=== PATIENT | male | born 1965 | race Caucasian/White ===

== ENCOUNTER 2016-11-18 08:16 | Inpatient (IN) | payer OTHER ==
[2016-11-04 10:11] VITALS: BMI 38.0
--- NOTE | 2016-11-04 10:53 | PAT Medication Instructions ---
Service Date Nov 04, 2016. Current Home Medication List Acetaminophen (Tylenol), 1,500 MG PO BID PRN Ibuprofen (Advil), 200-600 MG PO Q4H PRN for Pain Morphine Sulfate Ir (Morphine Sulfate Ir), 15 MG PO BID PRN for Pain Omeprazole (Prilosec), 1 CAP PO QAM Oxycodone Hcl (Oxycodone Hcl), 1 TAB PO QID PRN for Pain Medication Instructions For Your Scheduled Surgery - Check with surgeon for instructions: Ibuprofen (Advil), 200-600 MG PO Q4H PRN for Pain - Take the following medications the morning of surgery with a sip of water: Acetaminophen (Tylenol), 1,500 MG PO BID PRN (if needed) Morphine Sulfate Ir (Morphine Sulfate Ir), 15 MG PO BID PRN for Pain (okay to take up to 4 hours prior to surgery if needed) Omeprazole (Prilosec), 1 CAP PO QAM Oxycodone Hcl (Oxycodone Hcl), 1 TAB PO QID PRN for Pain (okay to take up to 4 hours prior to surgery if needed) - Take the following medications as scheduled the night before surgery: Acetaminophen (Tylenol), 1,500 MG PO BID PRN (if needed) Morphine Sulfate Ir (Morphine Sulfate Ir), 15 MG PO BID PRN for Pain (if needed) Omeprazole (Prilosec), 1 CAP PO QAM Oxycodone Hcl (Oxycodone Hcl), 1 TAB PO QID PRN for Pain (if needed) If you have any questions please call us at [phone] or [phone] or [phone]
--- NOTE | 2016-11-04 11:30 | DIAGNOSTIC IMAGING REPORT ---
CHEST PREADMISSION(PA/LAT) CLINICAL HISTORY: Preoperative evaluation. COMPARISON STUDY: Chest radiograph November 05, 2007. FINDINGS: Lung volumes are normal. Lungs are clear. No pneumothorax or pleural effusion is present. Pulmonary vascularity is normal. Cardiomediastinal silhouette is normal. IMPRESSION: No acute cardiopulmonary findings. Electronically signed by: Pedro Terrell M.D. 11/04/2016 11:29 AM Dictated Date/Time: 11/04/2016 11:29 AM
[2016-11-04 11:33] LABS: BASO % 0.3 %; BASO ABS # 0.04 K/uL (0-0.2); COMPLETE YES; HEMATOCRIT 39.1 % (42-52); IG% 0.6 %; LYMPH % 23.8 %; MEAN CELL VOLUME 88.3 fL (80-100); MEAN CORPUSCULAR HEMOGLOBIN 30.9 pg (25-34); MONO % 6.3 %; PLATELET COUNT 297 K/uL (130-400); RED BLOOD COUNT 4.43 M/uL (4.7-6.1); URINE APPEARANCE CLEAR (CLEAR); URINE BILIRUBIN NEG (NEG); URINE COLOR YELLOW; URINE NITRITE NEG (NEG); URINE SPECIFIC GRAVITY 1.014 (1.000-1.030); UROBILINOGEN NEG (NEG); ZZUR CULT IF INDIC CLEAN CATCH NO
[2016-11-04 11:39] LABS: MANUAL MICROSCOPIC REQUIRED? NO; REVIEW REQ? NO
[~2016-11-18] VITALS: Ht 167.6 cm; Wt 107.5 kg
[2016-11-18] VITALS (8 sets, daily range): BP systolic 104–146; BP diastolic 55–94; PULSE 75–88; TEMP 36.2–36.6; O2SAT 95–100; Ht 167.6 cm; Wt 107.5 kg
[~2016-11-18 08:16] MED LIST: ACET-1256 PO; CEFAZOLIN 2000 MG/60 ML D5W IV SCH; IBUP-1050 PO; MORP15TA PO; OMEP40CA41 PO; OXYC-164 PO
[2016-11-18] MEDS ORDERED: MIDAZOLAM HCL 1 MG/ML 2ML VIAL ONE (09:34)
[2016-11-18] MEDS ORDERED: FENTANYL CITRATE INJ 50 MCG/1 ML 2 ML VIAL ONE ×6 (09:35→12:43)
--- NOTE | 2016-11-18 09:43 | History & Physical Bridge Note ---
H&P Re-Evaluation Bridge Note: I have examined the patient, reviewed the History & Physical and in the interval since the performance of the History & Physical I have noted the following changes of clinical significance: No changes noted
--- NOTE | 2016-11-18 09:44 | History and Physical ---
History & Physical Date Nov 18, 2016. Chief Complaint Back and leg pain History of Present Illness The patient is a 51 year old male with complaints of back and leg pain Additional History Hepatic Disease: No Endocrine Disorder: No Kidney Disease: No Hypertension: No Heart Disease: No Bleeding Tendencies: No Infectious Diseases: No Allergies Coded Allergies: No Known Allergies (Verified , 11/18/16) Home Medications Scheduled Acetaminophen (Tylenol), 1,500 MG PO BID PRN Omeprazole (Prilosec), 1 CAP PO QAM Scheduled PRN Ibuprofen (Advil), 200-600 MG PO Q4H PRN for Pain Morphine Sulfate Ir (Morphine Sulfate Ir), 15 MG PO BID PRN for Pain Oxycodone Hcl (Oxycodone Hcl), 1 TAB PO QID PRN for Pain Physical Examination Skin: warm/dry, no rash Eyes: normal inspection, EOMI, sclerae normal ENT: normal ENT inspection, pharynx normal Head: normocephalic, atraumatic Neck: supple, no adenopathy, trachea midline Respiratory/Chest: lungs clear, normal breath sounds, no respiratory distress Cardiovascular: regular rate, rhythm, no edema, no murmur Abdomen / GI: normal bowel sounds, non tender Back: normal inspection Extremities: normal inspection, normal range of motion Neurologic/Psych: no motor/sensory deficits, alert, normal reflexes, oriented x 3 Diagnosis Lumbar spinal stenosis Plan of Treatment Lumbar decompression fusion L4 5 with removal of instrumentation L5-S1
[2016-11-18] MEDS ORDERED: CEFAZOLIN IV 2,000 MG/60 ML D5W IV ONE (10:02)
[2016-11-18] MEDS ORDERED: BACITRACIN 50000 UNIT VIAL ONE (10:15)
[2016-11-18] MEDS ORDERED: BUPIVACAINE/EPINEPHRINE 0.5% MPF 1:200,000 30 ML VIAL ONE (10:15)
[2016-11-18] MEDS ORDERED: HYDROmorphone INJ 2 MG/ML SYR/VIAL ONE ×2 (10:51→12:53)
[2016-11-18] MEDS ORDERED: KETAMINE HCL INJ 50 MG/ML 10 ML VIAL ONE (10:51)
[2016-11-18] MEDS ORDERED: LIDOCAINE HCL 2% 2 ML VIAL (20MG/ML) ONE (12:32)
[2016-11-18] MEDS ORDERED: LABETALOL HCL IV 5 MG/ML 20ML IV ONE (12:32)
[2016-11-18] MEDS ORDERED: DEXAMETHASONE SOD INJ 4 MG/ML VIAL ONE (12:32)
[2016-11-18] MEDS ORDERED: ONDANSETRON INJ 2 MG/ML 2 ML VIAL ONE ×2 (12:32→12:53)
[2016-11-18] MEDS ORDERED: ESMOLOL HCL 10 MG/ML 10 ML VIAL ONE (12:32)
[2016-11-18] MEDS ORDERED: PROPOFOL IV EMULSION 10 MG/ML 20 ML VIAL IV ONE (12:32)
[2016-11-18] MEDS ORDERED: FAMOTIDINE 20 MG TAB PO PRN (12:45)
[2016-11-18] MEDS ORDERED: METOCLOPRAMIDE HCL INJ 5 MG/ML 2 ML VIAL IV PRN (12:45)
[2016-11-18] MEDS ORDERED: ACETAMINOPHEN 500 MG TAB PO PRN (12:45)
[2016-11-18] MEDS ORDERED: DO NOT ADMINISTER FLU VACCINE PRN ×3 (12:45)
[2016-11-18] MEDS ORDERED: SODIUM CHLORIDE 0.9% 1000ML 1,000 ML IV SCH (12:45)
[2016-11-18] MEDS ORDERED: hydrOXYzine HCL 25 MG TAB PO PRN (12:45)
[2016-11-18] MEDS ORDERED: PROMETHAZINE HCL INJ 12.5 MG in SODIUM CHLORIDE 0.9% 50ML 50 ML IV PRN (12:45)
[2016-11-18] MEDS ORDERED: LORAZEPAM INJ 0.5 MG in SYRINGE 0.75 ML IV PRN (12:45)
[2016-11-18] MEDS ORDERED: DO NOT ADMINISTER PNEUMOCOCCAL VACCINE PRN ×2 (12:45)
[2016-11-18] MEDS ORDERED: LORAZEPAM 0.5 MG TAB PO PRN (12:45)
[2016-11-18] MEDS ORDERED: MAGNESIUM HYDROXIDE SUSP 30 ML UDC PO PRN (12:45)
[2016-11-18] MEDS ORDERED: NALOXONE HCL 0.4 MG/1 ML VIAL/CARP IV PRN ×2 (12:45)
[2016-11-18] MEDS ORDERED: BISACODYL 10 MG SUPP PR PRN (12:45)
[2016-11-18] MEDS ORDERED: SOD PHOSPHATE/SOD BIPHOSPHATE ENEMA 132 ML BTL PR PRN (12:45)
[2016-11-18] MEDS ORDERED: ONDANSETRON INJ 2 MG/ML 2 ML VIAL IV PRN ×2 (12:45→13:30)
[2016-11-18] MEDS ORDERED: FLOSEAL HEMOSTATIC MATRIX 10ML TOP ONE (12:46)
[2016-11-18] MEDS ORDERED: GLYCOPYRROLATE INJ 0.2 MG/ML VIAL ONE (12:53)
[2016-11-18] MEDS ORDERED: NEOSTIGMINE METHYLSULFATE 1 MG/ML 10ML VIAL ONE (12:53)
[2016-11-18] MEDS ORDERED: KETOROLAC TROMETHAMINE 30 MG/ML VIAL ONE (12:53)
--- NOTE | 2016-11-18 12:55 | [facility] Operative Report ---
Operative Report Operative Date Nov 18, 2016. Pre-Operative Diagnosis Lumbar Spinal Stenosis Post-Operative Diagnosis Lumbar Spinal Stenosis Procedure(s) Performed #1 removal of posterior instrumentation L5-S1. #2 expiration of fusion L5-S1. #3 lumbar decompression medial facetectomies foraminotomies L3 4 L4 5. #4 posterior spinal fusion L4 5. #5 placement posterior inch rotation L4 5. #6 interbody fusion L4 5. #7 placement peek cage 15 x 26 mm at L4 5. #8 placement of local autograft and posterior gutters. #9 placement of ostial amp in the interbody space and posterior lateral gutters. Surgeon Dr. Killian Armorer Technician Surgeon(s) Magda Montesinos PA-C Estimated Blood Loss 450 cc Findings Severe spinal stenosis Specimens A: explanted hardware Description of Procedure Patient was met with preoperatively case discussed all questions are dressed. After informed consent obtained patient was taken to the operative suite underwent intubation and placed in prone position Mo table on top of the Adan frame. All bony prominences were well-padded and the eyes inspected to ensure no external pressure placed upon them. This point lumbar spines prepped and draped in normal sterile fashion. Sharp dissection with the assistance of Bovie cautery was performed onto an exposing the lamina and transverse processes of L4 and instrumentation at the 5 S1 levels bilaterally. Proceeded remove the hardware L5-S1 bilaterally explored the fusion mass noted to be intact. Then performed a complete laminectomy of L4 partial laminectomy of L3 addressing severe lateral recess and foraminal stenosis. Pedicle screws then placed in L4 and 5 bilaterally with assistance of fluoroscopy in the purposes juan diego placed. Through a transverse foraminal approach a left complete discectomy was performed and plate created to subcortical bleeding bone and a 15 x 26 mm cage filled with ostial amp tapped into position. The rods were then compressed locked and final position bilaterally transverse processes of L4 and L5 burred to subcortical bleeding bone. Remaining ostial amp local autograft was placed and posterior gutters. 15 round NYLA drain inserted. Incision was closed with 1 Vicryl fascia 2-0 Vicryl subcutaneous C 4 Monocryl for final skin closure Steri-Strip sterile dressing placed patient we can take PACU stable condition. Please note Magda Machuca was present at the entire procedure involved in patient positioning complex portions of the surgery and final skin closure. I attest to the content of the Intraoperative Record and any orders documented therein. Any exceptions are noted below.
--- NOTE | 2016-11-18 12:56 | DIAGNOSTIC IMAGING REPORT ---
LUMBAR SPINE, INTRAOPERATIVE FLUOROSCOPY HISTORY: L4-5 decompression and fusion. FLUOROSCOPY TIME: 9 seconds. FINDINGS: Intraoperative fluoroscopy was provided for the lumbar spine. 2 fluoroscopic spot images were obtained. Posterior decompression fusion at L4-5 with pedicle screws and rods. The hardware appears intact. Evidence for prior hardware removal at L5-S1. IMPRESSION: Fluoroscopy provided for a L4-5 posterior decompression and fusion. Electronically signed by: Jeovanny Juarez M.D. 11/18/2016 12:55 PM Dictated Date/Time: 11/18/2016 12:54 PM
[2016-11-18] MEDS ORDERED: HYDROmorphone INJ 1 MG/ML SYR ONE (13:17)
[2016-11-18] MEDS: HYDROmorphone HCL 0.5MG/ML 50 ML CASSETTE IV PRN ×4 (13:19→23:03)
[2016-11-18] MEDS ORDERED: EpHEDrine SULFATE INJ 50 MG/ML AMP IV PRN (13:30)
[2016-11-18] MEDS ORDERED: PHENYLEPHRINE 100MCG/ML 5ML SYR IV PRN (13:30)
[2016-11-18] MEDS ORDERED: HYDROmorphone INJ 2 MG/ML SYR/VIAL IV PRN (13:30)
[2016-11-18] MEDS ORDERED: ATROPINE SULFATE 0.1 MG/ML 5ML SYR IV PRN (13:30)
--- NOTE | 2016-11-18 14:04 | Anesthesiology Progress Note ---
Anesthesia Post Op Note Date & Time Nov 18, 2016 at 14:03 Vital Signs Pain Intensity: 0 Vital Signs Past 12 Hours Date Time Temp Pulse Resp B/P (MAP) Pulse Ox O2 Delivery O2 Flow Rate FiO2 11/18/16 13:55 71 16 136/85 99 Nasal Cannula 4 11/18/16 13:45 70 14 148/81 97 Nasal Cannula 4 11/18/16 13:35 74 14 168/96 100 Oxymask 10 11/18/16 13:25 68 12 173/101 100 Oxymask 10 11/18/16 13:15 78 12 172/104 100 Oxymask 10 11/18/16 13:07 36.5 74 14 158/70 100 Oxymask 10 11/18/16 08:42 36.4 76 18 143/94 97 Room Air Notes Mental Status: alert / awake / arousable, participated in evaluation Pt Amnestic to Procedure: Yes Nausea / Vomiting: adequately controlled Pain: adequately controlled Airway Patency, RR, SpO2: stable & adequate BP & HR: stable & adequate Hydration State: stable & adequate Anesthetic Complications: no major complications apparent
[2016-11-18] MEDS: LACTATED RINGER'S 1000ML 1,000 ML IV SCH ×2 (14:34→19:34)
[2016-11-18] MEDS: CEFAZOLIN IV 2,000 MG in DEXTROSE 5% 50ML 50 ML IV SCH (18:15)
[2016-11-18] MEDS: NICOTINE 21 MG/24 HR TDSY EXT SCH (19:02)
[2016-11-18] MEDS: DEXAMETHASONE INJ 6 MG in SYRINGE 0 ML IV SCH (20:12)
[2016-11-18] MEDS: DOCUSATE SODIUM/SENNA 50/8.6MG TAB PO SCH (21:04)
[2016-11-19] MEDS: LACTATED RINGER'S 1000ML 1,000 ML IV SCH (02:06)
[2016-11-19] MEDS: CEFAZOLIN IV 2,000 MG in DEXTROSE 5% 50ML 50 ML IV SCH (02:06)
[2016-11-19] MEDS: ALUMINUM/MAGNESIUM SUSP 30 ML UDC PO PRN ×2 (03:39→11:38)
[2016-11-19] MEDS: DEXAMETHASONE INJ 6 MG in SYRINGE 0 ML IV SCH ×2 (03:42→11:30)
[2016-11-19] MEDS: ACETAMINOPHEN IV 100 ML IV PRN ×2 (03:43→21:02)
[2016-11-19 03:52] VITALS: BP 111/70; PULSE 80; TEMP 36.5; O2SAT 97
[2016-11-19] MEDS ORDERED: NURSING VERBAL MED ORDER ONE ×2 (06:00→09:00)
[2016-11-19] MEDS ORDERED: HYDROmorphone INJ 0.5 MG/0.5 ML SYR IV PRN (06:00)
[2016-11-19] MEDS ORDERED: DC PCA SCH (06:00)
[2016-11-19 06:34] LABS: BASO % 0.1 %; BASO ABS # 0.01 K/uL (0-0.2); COMPLETE YES; HEMATOCRIT 32.9 % (42-52); IG% 0.4 %; LYMPH % 5.2 %; LYMPH ABS # 1.02 K/uL (1.2-3.4); MEAN CELL VOLUME 88.9 fL (80-100); MEAN CORPUSCULAR HEMOGLOBIN 29.2 pg (25-34); MEAN CORPUSCULAR HGB CONC 32.8 g/dl (32-36); MEAN PLATELET VOLUME 10.1 fL (7.4-10.4); MONO % 4.9 %; NEUT % 89.4 %; PLATELET COUNT 241 K/uL (130-400); WHITE BLOOD COUNT 19.65 K/uL (4.8-10.8)
[2016-11-19 07:09] LABS: BUN/CREATININE RATIO 12.9 (10-20); CALCIUM 8.9 mg/dl (8.5-10.1); CREATININE 0.95 mg/dl (0.60-1.40); POTASSIUM 4.1 mmol/L (3.5-5.1)
[2016-11-19 07:45] VITALS: BP 137/76; PULSE 74; TEMP 36.5; O2SAT 95
[2016-11-19] MEDS: PANTOprazole SOD 40 MG TAB PO SCH (08:00)
[2016-11-19] MEDS: NICOTINE 21 MG/24 HR TDSY EXT SCH (08:01)
[2016-11-19] MEDS ORDERED: RXC5 PO (08:01)
[2016-11-19] MEDS: OXYCODONE HCL IR 5 MG TAB (IMMEDIATE RELEASE) PO PRN ×3 (08:01→19:44)
--- NOTE | 2016-11-19 08:02 | Discharge Instructions ---
Discharge Instructions Date of Service Nov 19, 2016. Admission Reason for Admission: Lumbar Spinal Stenosis Discharge Discharge Diagnosis / Problem: lumbar stenosis Discharge Goals Goal(s): Improve function Activity Recommendations Activity Limitations: per Instructions/Follow-up section . Instructions / Follow-Up Instructions / Follow-Up ACTIVITY RECOMMENDATIONS: SELF CARE INSTRUCTIONS AFTER THORACIC/LUMBAR FUSIONS 1. You may walk to your tolerance. It is good exercise for your legs and back. Expect some back and intermittent leg aches and pains. 2. You may perform "counter-top" level activities (make a sandwich, ethan with a project, etc.). 3. No bending or lifting of more than 10 pounds or back twisting of any nature (roll like a log when turning in bed). 4. You may ride in a car for 20-30 minutes at a time. No driving until after your first visit with your doctor. 5. Frequent changes of position and restricting sitting to 30 minutes at a time will help limit the amount of back spasms and stiffness you may experience. 6. You may discontinue the use of ambulatory aids (cane, crutches, etc.) once your strength and confidence allow. 7. You may bonding agent the shower and let water strike your incision when you arrive home at least once daily. Do not take a tub bath, sit in a hot tub or go into a swimming pool until after your first recheck in the office. SPECIAL CARE INSTRUCTIONS: VERY IMPORTANT TO READ AND REVIEW A. Your surgical incision has been closed with a cosmetic suture under the skin that will dissolve in about 6 weeks. In 14 days, you can use a pair of clean scissors and cut the suture that is left outside of the skin at the ends of your incision. 1. The small skin tapes can be removed 7 days after surgery if they have not fallen off by that point. 2. You may keep the wound open to air as much as possible to promote healing after post-op day number 5 unless told otherwise by your doctor. 3. If you think the wound looks like it is becoming infected (redness or worsening drainage) and/or you are experiencing fever, chill or worsening back pain and muscle spasms, contact the office so that we may evaluate you as soon as possible. B. Complications are uncommon, but please contact us if you have any signs or symptoms of: 1. wound infection (fever higher than 102.5 degrees F, redness, separation of wound, drainage, or increasing pain from the incision) 2. blood clots in legs (pain, swelling, redness and warmth in legs) 3. urinary tract infection (fever higher than 102.5 degrees F, burning upon urination or increased frequency of urination) 4. nerve problems (inability to walk on your toes or heels, numbness, loss of bowel or bladder control) 5. any other symptoms that concern you C. Please call the office at if you have any concerns or questions about your operation or recovery. D. No smoking! Smoking drastically decreases the chance of a solid fusion. E. Do not take any anti-inflammatory medications (Indocin, Advil, Motrin, Aspirin, Naprosyn, etc.) as these may inhibit the chance of a solid fusion. Tylenol is okay to take for pain. MANAGING PAIN AFTER SPINAL SURGERY 1. Narcotic medication is intended for short-term use and will be provided for surgical pain. Surgical pain usually lasts for a period of 4-6 weeks. Narcotic medication includes Percocet, Vicodin, Darvocet, Tylenol #3 or Lortab. 2. Longer-term pain is more appropriately treated with non-narcotic medication such as Tylenol ES. 3. Muscle spasm is not appropriately treated with narcotics. Muscle relaxers such as Soma, Flexeril or Skelaxin can be used along with Tylenol ES. 4. Remember that we all live with some "aches and pains". This is not unusual or uncommon after an injury or as we get older. a. Back pain is expected and may include muscle spasms for 4 to 6 weeks after surgery. The pain should gradually improve. If the pain worsens for no apparent reason, please contact the office. b. Intermittent leg pain may also be experienced and should not be concerned about unless it worsens for no apparent reason. If so, please contact the office. 5. We will provide appropriate medication within the normal guidelines of their prescribed use. We will also be very cautious and aware of potential abuse and extended duration of patients' medication needs. a. Pain medications are for your comfort and to assist with sleep and rest so that the tissue can heal. They are not provided in order to return to normal activity and should not be used through the day. To do so or worsening pain at night can result from ongoing tissue damage and development of tolerance to the prescribed medicine. 6. Please allow 2-3 days to process refills. Prescriptions will not be mailed but must be picked up at the office. FOLLOW UP VISIT: Keep your scheduled follow-up appointment. Any questions, please call the office at . Current Hospital Diet Patient's current hospital diet: Regular Diet Discharge Diet Recommended Diet: Regular Diet Procedures Procedures Performed: #1 removal of posterior instrumentation L5-S1. #2 expiration of fusion L5-S1. #3 lumbar decompression medial facetectomies foraminotomies L3 4 L4 5. #4 posterior spinal fusion L4 5. #5 placement posterior inch rotation L4 5. #6 interbody fusion L4 5. #7 placement peek cage 15 x 26 mm at L4 5. #8 placement of local autograft and posterior gutters. #9 placement of ostial amp in the interbody space and posterior lateral gutters. Pending Studies Studies pending at discharge: no Medical Emergencies . Who to Call and When: Medical Emergencies: If at any time you feel your situation is an emergency, please call 911 immediately. . Non-Emergent Contact Non-Emergency issues call your: Primary Care Provider . "Provider Documentation" section prepared by Collin Killian. . VTE Core Measure Inpt VTE Proph given/why not?: Marvin Peterson, SCD's
--- NOTE | 2016-11-19 09:41 | Progress Note ---
Progress Note Date of Service Nov 19, 2016. Progress Note Patient is doing very well. Marked resolution of his leg pain. Struggling with some back pain but is controlled. On exam he is in complaining halls with excellent strength and posture. Progressing properly. Assessment status post lumbar decompression fusion. Plan this time we'll monitor is NYLA output anticipate home possibly one sterile .
[2016-11-19] MEDS: HYDROmorphone INJ 1 MG/ML SYR IV PRN ×2 (10:08→23:16)
[2016-11-19] MEDS: MoRPHine SULFATE IR 15 MG TAB (IMMEDIATE RELEASE) PO PRN (11:37)
[2016-11-19 11:47] VITALS: BP 132/76; PULSE 73; TEMP 36.7; O2SAT 96
[2016-11-19 15:08] VITALS: BP 124/76; PULSE 82; TEMP 36.5; O2SAT 95
[2016-11-19] MEDS: DOCUSATE SODIUM/SENNA 50/8.6MG TAB PO SCH (21:00)
[2016-11-19 23:09] VITALS: BP 155/83; PULSE 75; TEMP 36.4; O2SAT 98
[2016-11-20] MEDS: HYDROmorphone INJ 1 MG/ML SYR IV PRN (03:45)
[2016-11-20] MEDS: OXYCODONE HCL IR 5 MG TAB (IMMEDIATE RELEASE) PO PRN ×3 (05:49→14:36)
[2016-11-20] MEDS: POLYETHYLENE (MIRALAX) 17 GM PACK PO SCH ×2 (05:49→12:04)
[2016-11-20 06:14] VITALS: BP 148/90; PULSE 71; TEMP 36.7; O2SAT 97
[2016-11-20] MEDS: MoRPHine SULFATE IR 15 MG TAB (IMMEDIATE RELEASE) PO PRN (07:52)
[2016-11-20] MEDS: NICOTINE 21 MG/24 HR TDSY EXT SCH (07:53)
[2016-11-20] MEDS: PANTOprazole SOD 40 MG TAB PO SCH (07:54)
[2016-11-20] MEDS ORDERED: KETOROLAC TROMETHAMINE 30 MG/ML VIAL IV STA (09:53)
[2016-11-20] MEDS ORDERED: KETOROLAC TROMETHAMINE 30 MG/ML VIAL IV PRN (10:00)
[2016-11-20 12:43] VITALS: BP 148/90; PULSE 71; TEMP 36.7; O2SAT 97
--- NOTE | 2016-11-20 13:40 | Discharge Summary ---
Orthopedic Discharge Summary Admission Date/Reason Nov 18, 2016 at 10:00 Lumbar Spinal Stenosis. Discharge Date/Disposition Nov 20, 2016 Home Diagnosis Principal Diagnosis: Lumbar spinal stenosis Admission Physical Exam As per Admitting History & Physical. Hospital Course Patient underwent lumbar decompression fusion tolerated as well as taken to the orthopedic floor postoperatively. Postoperative day #1 is up and amatory progressed to postoperative day #2. NYLA drain decreased improperly. Substernally he was discharged home. Discharge orders and instructions found on the chart for further review. Discharge Instructions Please refer to the electronic Patient Visit Report (Discharge Instructions) for additional information.
== END 2016-11-20 14:40 | disposition home or self-care (01) | DRG 460 ==
LOC: C.ACU 08:16 → C.3E 10:00 → ENRESERV 13:51
PROVIDERS: ADMIT Orthopaedic Surgery Orthopaedic Surgery of the Spine; ATTEND Orthopaedic Surgery Orthopaedic Surgery of the Spine
PROC: 0ST20ZZ Resection of Lumbar Vertebral Disc, Open Approach (ICD-10-PCS; principal; 2016-11-18 10:20)
PROC: 0SG00J1 Fusion of Lumbar Vertebral Joint with Synthetic Substitute, Posterior Approach, Posterior Column, Open Approach (ICD-10-PCS; principal; 2016-11-18 10:20)
DX: M48.061 Spinal stenosis, lumbar region without neurogenic claudication (principal)